=== PATIENT | male | born 1980 | race Caucasian/White ===

== ENCOUNTER 2017-03-05 19:16 | Emergency (ER) | payer SELFPAY ==
--- NOTE | ~2017-03-05 | ER ---
PATIENT'S NAME: SLAVA FUNG [facility] AGE: 37 Y [address] ROOM: [place] [id number] LOCATION: [facility] ADMIT DATE: 03/05/2017 ER/Outpatient Report DISCHARGE DATE: 03/05/2017 FAMILY PHYSICIAN: PHYSICIAN, NO ATTENDING PHYSICIAN: Estephania Fletcher HISTORY OF PRESENT ILLNESS: This is a 37-year-old male, who presented today with chief complaints of urinary frequency and burning with urination. He also reports some blood in his urine; it started today. The patient has a history of UTIs in the past, for which he follows up with Dr. Garriod for urology. Currently, his pain is 0/10, but when he is urinating, it is a 7/10 and burning. PAST MEDICAL HISTORY: Includes 1. Mitral valve prolapse. 2. History of UTIs with E. coli growing, he has had two episodes. PAST SURGICAL HISTORY: Knee surgery. SOCIAL HISTORY: He does not smoke or do any drugs. He drinks alcohol rarely. MEDICATIONS: None. ALLERGIES: NONE. REVIEW OF SYSTEMS: Reviewed by me and are negative with the exception of those discussed in the HPI. PHYSICAL EXAMINATION: VITAL SIGNS: He is 6 feet 3 inches. He weighs 112.7 kilos. Blood pressure was 131/77, heart rate was 62, respiratory rate was 16, temperature was 97.5, and saturating 98% on room air. GENERAL: The patient is not in any acute distress. He is sitting up in the stretcher on his phone. He is alert and oriented x4. He moves all extremities. Gait was within normal limits. GCS is 15. CARDIAC: Heart rate is regular rate and rhythm. PULMONARY: Lung sounds are clear. ABDOMEN: Soft, nontender, and nondistended. No guarding or rebound. No CVA tenderness bilaterally. PATIENT'S NAME: SLAVA FUNG [facility] AGE: 37 Y [address] ROOM: [place] [address] LOCATION: [facility] ADMIT DATE: 03/05/2017 ER/Outpatient Report DISCHARGE DATE: 03/05/2017 FAMILY PHYSICIAN: PHYSICIAN, ANUP ATTENDING PHYSICIAN: Estephania Fletcher SKIN: Warm, dry, and intact. EMERGENCY ROOM COURSE: GC, Chlamydia, and urine with was checked. Gonorrhea and chlamydia test was negative. The urine was negative for leukocytes, negative for nitrites, 150 rbc's , wbc's 0 to 2, rbc's 10 to 20, epithelial cells were 2 to 5, and bacteria is negative. I discussed this with the patient. Pretty normal urine exam at this time. However, we will treat him symptomatically for UTI. As I went back and reviewed his chart, he did have a UTI back in 2011, which is pretty pansensitive to everything including Macrobid. I discussed with the patient that men having UTIs is quite rare, he says that he went to see Dr. Garrido, and he had a cystoscopy and . They think that it is because he was drinking a lot of soda and urinating like two times a day; not urinating very frequently, so that is why he got this UTI. We will put him on Macrobid, and I asked that he follow up with Dr. Garrido in the next week. IMPRESSION: 1. Urinary frequency. 2. Dysuria. MD MERYL VILLALTA/radha /[id number] d: 03/06/17441 t: 03/06/171810, OUTPATIENT REPORT
[2017-03-05 19:38] LABS: BILIRUBIN URINE NEGATIVE (NEGATIVE); BLOOD URINE 150 /UL (NEGATIVE); COLOR URINE YELLOW (YELLOW); GLUCOSE URINE NEGATIVE (NEGATIVE); KETONE URINE NEGATIVE (NEGATIVE); LEUKOCYTES URINE NEGATIVE /UL (NEGATIVE); NITRITE URINE NEGATIVE (NEGATIVE); PROTEIN URINE NEGATIVE (NEGATIVE); TURBIDITY URINE CLEAR (CLEAR); UROBILINOGEN URINE NORMAL (NORMAL)
[2017-03-05 19:51] LABS: BACTERIA URINE NEGATIVE (NEGATIVE); WBC URINE 0-2 #/HPF (NEGATIVE)
== END 2017-03-05 20:02 | disposition disaster alternative care site (69) ==
LOC: GMED 19:16
PROVIDERS: Emergency Medicine
DX: R35.0 Frequency of micturition (principal); R30.0 Dysuria; Z87.440 Personal history of urinary (tract) infections; Z98.890 Other specified postprocedural states